=== PATIENT | female | born 1980 ===

== ENCOUNTER 2021-10-05 02:19 | Emergency (ER) | payer SELFPAY ==
[2021-10-05 02:28] VITALS: BP 110/70
--- NOTE | 2021-10-05 05:38 | Emergency Department Report ---
ED N/V/D HPI - General Chief complaint: Abdominal Pain Stated complaint: ABDOMINAL PAIN, NAUSEA AND VOMITING PUI?: No Source: EMS Mode of arrival: Stretcher Limitations: No Limitations - History of Present Illness Initial comments: Patient is a 40-year-old -[place] female with no past medical history presented to the ED with complaint of acute onset persistent intermittent nausea and vomiting with mild epigastric pain for the last 6 hours. Patient states that she has had up to 2 episodes of nausea and vomiting and the last time of which was 4 hours ago. Patient states that the symptoms started after she ate a new meal over 8 hours ago. Patient states that the nausea and vomiting has since resolved as well as epigastric pain. Patient denies diarrhea, fever, chills, cough, sore throat, chest pain or shortness of breath, dysuria, urinary frequency and urgency, hematemesis, hematochezia, headache, dizziness or syncope. MD complaint: nausea, vomiting, abdominal pain (Epigastric pain) -: Sudden, hour(s) (6) Description of Vomiting: food contents, watery Associated Abdominal Pain: Yes (Mild epigastric pain) Location: epigastric Radiation: none Severity: mild Pain Scale: 1 Quality: aching, dull Consistency: now resolved Improves with: none Worsens with: eating, vomiting Context: possible food poisoning Associated Symptoms: denies other symptoms, nausea/vomiting. denies: myalgias, chest pain, cough, diaphoresis, fever/chills, headaches, malaise, rash, dysuria, shortness of breath, syncope, weakness - Related Data Previous Rx's Medication Instructions Recorded Last Taken Type Dicyclomine [Bentyl] 20 mg PO Q6H PRN #30 tablet 10/05/21 Unknown Rx Famotidine [Pepcid] 20 mg PO BID #60 tablet 10/05/21 Unknown Rx Ondansetron [Zofran Odt] 4 mg PO Q8HR PRN #20 tab.rapdis 10/05/21 Unknown Rx Allergies Allergy/AdvReac Type Severity Reaction Status Date / Time No Known Allergies Allergy Verified 10/05/21 02:28 ED Review of Systems ROS: Stated complaint: ABDOMINAL PAIN, NAUSEA AND VOMITING Other details as noted in HPI Constitutional: denies: chills, fever Eyes: denies: eye pain, eye discharge, vision change ENT: denies: ear pain, throat pain Respiratory: denies: cough, shortness of breath, wheezing Cardiovascular: denies: chest pain, palpitations Endocrine: no symptoms reported Gastrointestinal: abdominal pain (Mild epigastric pain), nausea, vomiting. denies: diarrhea Genitourinary: denies: urgency, dysuria, discharge Musculoskeletal: denies: back pain, joint swelling, arthralgia Skin: denies: rash, lesions Neurological: denies: headache, weakness, paresthesias Psychiatric: denies: anxiety, depression Hematological/Lymphatic: denies: easy bleeding, easy bruising ED Past Medical Hx - Medications Home Medications: Home Medications Medication Instructions Recorded Confirmed Last Taken Type Dicyclomine [Bentyl] 20 mg PO Q6H PRN #30 tablet 10/05/21 Unknown Rx Famotidine [Pepcid] 20 mg PO BID #60 tablet 10/05/21 Unknown Rx Ondansetron [Zofran Odt] 4 mg PO Q8HR PRN #20 tab.rapdis 10/05/21 Unknown Rx ED Physical Exam - General Limitations: No Limitations General appearance: alert, in no apparent distress - Head Head exam: Present: atraumatic, normocephalic, normal inspection - Eye Eye exam: Present: normal appearance, PERRL, EOMI Pupils: Present: normal accommodation - ENT ENT exam: Present: normal exam, normal orophraynx, mucous membranes moist, TM's normal bilaterally, normal external ear exam - Neck Neck exam: Present: normal inspection, full ROM - Respiratory Respiratory exam: Present: normal lung sounds bilaterally. Absent: respiratory distress, wheezes, rales, rhonchi, chest wall tenderness, accessory muscle use, decreased breath sounds, prolonged expiratory - Cardiovascular Cardiovascular Exam: Present: regular rate, normal rhythm, normal heart sounds. Absent: systolic murmur, diastolic murmur, rubs, gallop - GI/Abdominal GI/Abdominal exam: Present: soft, normal bowel sounds. Absent: tenderness, guarding, rebound, hyperactive bowel sounds, hypoactive bowel sounds, organomegaly - Extremities Exam Extremities exam: Present: normal inspection, full ROM, normal capillary refill - Back Exam Back exam: Present: normal inspection, full ROM. Absent: tenderness, CVA tenderness (R), CVA tenderness (L), muscle spasm, paraspinal tenderness, vertebral tenderness - Neurological Exam Neurological exam: Present: alert, oriented X3, CN II-XII intact, normal gait, reflexes normal - Psychiatric Psychiatric exam: Present: normal affect, normal mood - Skin Skin exam: Present: warm, dry, intact, normal color. Absent: rash ED Course Vital Signs 10/05/21 02:26 Temperature 97.8 F Pulse Rate 68 Respiratory 18 Rate Blood Pressure 110/70 [Left] O2 Sat by Pulse 98 Oximetry ED Medical Decision Making - Medical Decision Making This is a 40-year-old -[place] female with no past medical history presented to the ED with complaint of acute onset persistent intermittent nausea and vomiting with mild epigastric pain for the last 6 hours. Patient states that she has had up to 2 episodes of nausea and vomiting and the last time of which was 4 hours ago. Patient states that the symptoms started after she ate a new meal over 8 hours ago. Patient states that the nausea and vomiting has since resolved as well as epigastric pain. In the ED, patient is alert and oriented x3 and is not in any distress. Patient is hemodynamically stable. Patient was treated in the ED for nausea and vomiting and also given antacids. Patient was discharged home on medications and advised to maintain a clear liquid diet for 12 to 24 hours, patient is advised return to the ED immediately if symptoms get worse. Patient was otherwise advised to follow-up with her primary care physician in 7 to 10 days for reevaluation. - Differential Diagnosis Viral gastroenteritis; dehydration; GERD; Critical care attestation.: If time is entered above; I have spent that time in minutes in the direct care of this critically ill patient, excluding procedure time. ED Disposition Clinical Impression: Viral gastroenteritis, Nausea and vomiting in adult patient GERD (gastroesophageal reflux disease) Qualifiers: Esophagitis presence: esophagitis presence not specified Qualified Code(s): K21.9 - Gastro-esophageal reflux disease without esophagitis Disposition: HOME / SELF CARE / HOMELESS Is pt being admited?: No Does the pt Need Aspirin: No Condition: Stable Instructions: Abdominal Pain (ED), Viral Gastroenteritis, Adult, [id number], Nausea and Vomiting, Adult, [id number], Gastroesophageal Reflux Disease, Adult, [id number] Additional Instructions: Your symptoms are likely due to viral gastroenteritis. Therefore maintain a clear liquid diet for 12 to 24 hours, drink plenty of fluids, take medications as advised and follow-up with your primary care physician in 5 to 7 days for reevaluation. Return to the ED immediately if symptoms get worse. Prescriptions: Dicyclomine [Bentyl] 20 mg PO Q6H PRN #30 tablet PRN Reason: Abdominal pain Famotidine [Pepcid] 20 mg PO BID #60 tablet Ondansetron [Zofran Odt] 4 mg PO Q8HR PRN #20 tab.rapdis PRN Reason: Nausea Referrals: [facility] [Provider Group] - 7-10 days Time of Disposition: 05:38 Print Language: GAMBIAN
[2021-10-05] MEDS ORDERED: ONDANSETRON 4 MG ODT TAB PO ONE (05:40)
[2021-10-05] MEDS ORDERED: FAMOTIDINE 20 MG TAB PO ONE (05:40)
== END 2021-10-05 06:31 | disposition home or self-care (01) ==
LOC: ED 02:19
DX: A08.4 Viral intestinal infection, unspecified (principal); K21.9 Gastro-esophageal reflux disease without esophagitis; Z79.899 Other long term (current) drug therapy
CPT/HCPCS: 99283; J3490; Q0162